=== PATIENT | male | born 1995 | race Two or more races ===

== ENCOUNTER 2020-05-26 16:51 | Emergency (ER) | payer MEDICAID ==
[~2020-05-26] VITALS: Ht 167.6 cm; Wt 51.3 kg
[2020-05-26 17:45] VITALS: BP 116/72
== END 2020-05-26 21:36 | disposition left against medical advice (07) ==
LOC: ER 16:51
DX: T22.012A Burn of unspecified degree of left forearm, initial encounter (principal); X08.8XXA Exposure to other specified smoke, fire and flames, initial encounter; Y93.89 Activity, other specified; Y92.89 Other specified places as the place of occurrence of the external cause; Y99.8 Other external cause status; Z53.21 Procedure and treatment not carried out due to patient leaving prior to being seen by health care provider